=== PATIENT | female | born 1970 | race American Indian/Alaskan Native ===

== ENCOUNTER 2016-12-25 20:08 | Emergency (ER) | payer OTHER ==
--- NOTE | ~2016-12-25 | CR173 ---
[facility] A Service of [facility] & [facility] / [facility] RADIOLOGY TEXT RESULTS PATIENT: SYLVIA KINCAID LOCATION: CFTX : 68 UNIT #: [id number] AGE: [address]: DUY PARHAM APRN SEX: F ORDER DR: [id number] [facility] [address] [place], [place] [address] [id number] MR#: [id number] Acc #: [id number] NAME: SYLVIA KINCAID : 1970 SEX: F STUDY DATE/TIME: 12/25/2016 19:53 UNIT: [facility] ROOM: STUDY DESCRIPTION: CR Knee 3 Views Rt Attending Physician: Duy Parham Aprn Ordering Physician: Duy Parham Aprn Primary Care Physician: Primary Care Physician No MEDICAL IMAGING REPORT This report is preliminary unless electronic signature is present EXAM Right knee 3 views HISTORY Fell today. Knee pain. FINDINGS 3 views of the right knee demonstrate no fracture or dislocation. Developing tricompartment osteoarthritis with medial compartment predominance. No joint effusion. 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 No acute findings. Dictated by... Nela Magallanes M.D. THIS IS AN ELECTRONICALLY VERIFIED REPORT Nela Magallanes M.D. at 12/26/2016 10:06 AM CHRISTIAN/estiven TD: 12/26/2016 09:30 JOB #: [id number] MEDICAL IMAGING REPORT Page 1 of 1 COPY
--- NOTE | ~2016-12-25 | CR253 ---
[facility] A Service of [facility] & [facility] RADIOLOGY TEXT RESULTS PATIENT: SYLVIA KINCAID LOCATION: CFTX : 68 UNIT #: [id number] AGE: [address]: DUY PARHAM APRN SEX: F ORDER DR: [id number] [facility] [address] [place], [place] [address] [id number] E MR#: [id number] Acc #: [id number] NAME: SYLVIA KINCAID : 1970 SEX: F STUDY DATE/TIME: 12/25/2016 19:53 UNIT: [facility] ROOM: STUDY DESCRIPTION: CR Tibia and Fibula 2 Views Rt Attending Physician: Duy Parham Aprn Ordering Physician: Duy Parham Aprn Primary Care Physician: No Primary Care Physician MEDICAL IMAGING REPORT This report is preliminary unless electronic signature is present EXAM Right lower leg. HISTORY Pain, swelling today after fall. FINDINGS 2 views of the right lower leg demonstrates no definite fracture or deformity. Arthritic changes noted in the knee with medial joint space loss. Soft tissues unremarkable. IMPRESSION No acute findings. Dictated by... Nela Magallanes M.D. THIS IS AN ELECTRONICALLY VERIFIED REPORT Nela Magallanes M.D. at 12/26/2016 10:06 AM Mani TD: 12/26/2016 09:28 JOB #: [id number] MEDICAL IMAGING REPORT Page 1 of 1 COPY
== END 2016-12-25 20:47 | disposition home or self-care (01) ==
LOC: CED 20:08
DX: S80.211A Abrasion, right knee, initial encounter (principal); Z88.2 Allergy status to sulfonamides; Z88.8 Allergy status to other drugs, medicaments and biological substances; W17.2XXA Fall into hole, initial encounter; Y92.410 Unspecified street and highway as the place of occurrence of the external cause
CPT/HCPCS: 73562; 73590; 99283